=== PATIENT | male | born 1965 | race Caucasian/White ===

== ENCOUNTER 2018-04-14 15:55 | Emergency (ER) | payer OTHER, SELFPAY ==
[2018-04-14 16:03] VITALS: BP 136/84; PULSE 60; RESP 20; TEMP 36.7; O2SAT 99
--- NOTE | 2018-04-14 16:18 | DI.RAD.S_ITS ---
PROCEDURE: XR KNEE RT 3V INDICATIONS: twisting injury, heard a pop TECHNIQUE: 3 views of the knee were acquired. COMPARISON: None. FINDINGS: Bones: No fractures or dislocations. No suspicious bony lesions. Soft tissues: There is a small joint effusion. No suspicious soft tissue calcifications. IMPRESSION: Small joint effusion. No fracture or dislocation. If pain persists, consider advanced imaging with CT or MRI. Dictated by: Rosie Neal M.D. on 04/14/2018 at 17:02 Approved by: Rosie Neal M.D. on 04/14/2018 at 17:03
--- NOTE | 2018-04-14 18:08 | ED.LOWEXIN ---
HPI - Extremity Injury (Lower) <ERIBERTO Cerda - Last Filed: 04/14/18 23:12> General Chief Complaint: Extremity Injury, Lower Stated Complaint: THINKS HE TORE SOMETHING IN HIS RIGHT KNEE Time Seen by Provider: 04/14/18 17:43 Source: patient Mode of arrival: ambulatory Limitations: no limitations History of Present Illness HPI Narrative: Patient had a twisting fall of his right knee today while fishing. He felt a pop and felt like his knee was on stable afterwards. He states he has never hurt that knee before. He fell down an embankment. He denies any other injuries denies neck pain, denies back pain, denies level loss of consciousness. States that he is here for knee pain. Has tried a knee compression sleeve. Has tried ice. He denies any numbness tingling or weakness of his legs. Related Data Home Medications Medication Instructions Recorded Confirmed ibuprofen [Advil Liqui-Gel] 200 mg PO Q4HP PRN #0 01/24/18 acetaminophen 650 mg PO Q4HP PRN #0 01/25/18 Previous Rx's Medication Instructions Recorded hydrocodone-acetaminophen [[place]] 1 tab PO Q4H PRN #40 tab 01/25/18 Allergies Allergy/AdvReac Type Severity Reaction Status Date / Time No Known Allergies Allergy Uncoded 02/20/18 12:54 Review of Systems <ERIBERTO Cerda - Last Filed: 04/14/18 23:12> Review of Systems GENERAL: Denies chills, fatigue, malaise, fever, sweats. HEENT: Denies sinus pain, ear pain, sore throat, difficulty swallowing, dizziness. RESPIRATORY: Denies dyspnea, cough, wheezing, hemoptysis, sputum. CARDIOVASCULAR: Denies chest pain, palpitations, orthopnea, edema, GASTROINTESTINAL: Denies nausea, vomiting, abdominal pain, diarrhea, constipation, melena. : Denies dysuria, frequency, incontinence, hematuria, urinary retention. MUSCULOSKELETAL: See HPI SKIN: See HPI NEUROLOGIC: Denies weakness, headache, numbness, change in speech, confusion, seizures, incoordination. PSYCHIATRIC: No concerning psychosocial issues. 12 point review of systems is negative except for those stated above Exam <ERIBERTO Cerad - Last Filed: 04/14/18 23:12> Narrative Exam Narrative: GENERAL: This is a well-nourished, well-developed patient, lying on stretcher. HEAD: Atraumatic. Normocephalic. No temporal or scalp tenderness. EYES: Pupils equal round and reactive. Extraocular motions intact. No scleral icterus. No injection or drainage. ENT: Nose without bleeding, purulent drainage or septal hematoma. Throat without erythema, tonsillar hypertrophy or exudate. Uvula midline. Airway patent. NECK: Trachea midline. No JVD or lymphadenopathy. Supple, nontender, no meningeal signs. CARDIOVASCULAR: Regular rate and rhythm without murmurs, gallops, or rubs. RESPIRATORY: Clear to auscultation. Breath sounds equal bilaterally. No wheezes, rales, or rhonchi. GASTROINTESTINAL: Abdomen soft, non-tender, nondistended. No hepato-splenomegaly, or palpable masses. No guarding. EXTREMITIES: Right knee has reduced range of motion due to pain. Negative anterior drawer, negative posterior drawer pain on varus and valgus maneuvers. Negative Jannette's test on right knee. BACK: Nontender without deformity or crepitance. No flank tenderness. NEURO: AOx3. SKIN: Slight swelling noted right knee. No ecchymosis, erythema skin is intact right knee. Initial Vital Signs Initial Vital Signs: Vital Signs Temperature 98.1 F 04/14/18 16:03 Pulse Rate 60 04/14/18 16:03 Respiratory Rate 20 04/14/18 16:03 Blood Pressure 136/84 H 04/14/18 16:03 Pulse Oximetry 99 04/14/18 16:03 <Ab Blankenship DO - Last Filed: 04/15/18 01:39> Initial Vital Signs Initial Vital Signs: Vital Signs Temperature 98.1 F 04/14/18 16:03 Pulse Rate 60 04/14/18 16:03 Respiratory Rate 20 04/14/18 16:03 Blood Pressure 136/84 H 04/14/18 16:03 Pulse Oximetry 99 04/14/18 16:03 Procedures <SLOAN Cerda-BLAYNE - Last Filed: 04/14/18 23:12> Orthopedic Splinting/Casting Injury #1: Side: right Lower Extremity Injury Location: knee Lower Extremity Immobilizer: knee immobilizer Other Orthopedic Equipment: crutches Additional Comments: Pulse motor sensory intact before and after knee immobilizer application. Course <ALBINO Cerda - Last Filed: 04/14/18 23:12> Hospital Course: Patient presented with knee pain. An x-ray was taken which showed no acute fracture. He was placed in a knee immobilizer with pulse motor and sensory intact before and after application. Discussed at length follow-up with [facility] as well as primary care. Orders Ordered: ED Orders 04/14/18 16:18 XR knee RT 3V Stat Vital Signs - 8 hr 04/14/18 18:33 Pulse Rate 62 Respiratory Rate 15 Blood Pressure [Right Arm] 127/75 H Pulse Oximetry 100 <Ab Blankenship DO - Last Filed: 04/15/18 01:39> Orders Ordered: ED Orders 04/14/18 16:18 XR knee RT 3V Stat Vital Signs - 8 hr 04/14/18 18:33 Pulse Rate 62 Respiratory Rate 15 Blood Pressure [Right Arm] 127/75 H Pulse Oximetry 100 MDM - Extremity Injury (Lower) <ALBINO Cerda - Last Filed: 04/14/18 23:12> Imaging Data right knee: Radiologist's impression: [place] [address] XRay Report Signed Patient: Stefan Arce MR#: [id number] : 1965 Acct:[id number] Age/Sex: 52 / M Date of Service: 04/14/18 Loc: ED Accession Number: [id number] Procedure: XR knee RT 3V Ordering Provider: Roseline Walker PROCEDURE: XR KNEE RT 3V INDICATIONS: twisting injury, heard a pop TECHNIQUE: 3 views of the knee were acquired. COMPARISON: None. FINDINGS: Bones: No fractures or dislocations. No suspicious bony lesions. Soft tissues: There is a small joint effusion. No suspicious soft tissue calcifications. IMPRESSION: Small joint effusion. No fracture or dislocation. If pain persists, consider advanced imaging with CT or MRI. Dictated by: Rosie Neal M.D. on 04/14/2018 at 17:02 Approved by: Rosie Neal M.D. on 04/14/2018 at 17:03 [facility] Narrative Medical decision making narrative: Patient presents with right knee pain. He has pain on varus and valgus maneuvers making me suspicious for an MCL or LCL etiology. He had a negative x-ray. He was placed in a knee immobilizer and crutches for comfort. Discussed at length [id number] medications as needed for pain, rice, elevation. Patient plans on following up with [facility] and primary care provider. Discussed return precautions upon Service decreased circulation of leg and foot. Patient had no questions or concerns upon discharge. Discharge Plan Departure Patient Disposition: Home, Self-Care Clinical Impression: Acute knee pain Discharge Date/Time: 04/14/18 18:48 Interventions: ED Discharge Assessment Last Done: 04/14/18 18:35 Instructions: How To Perform RICE (Rest, Ice, Compress, Elevate), DI for Knee Pain Activity Restrictions/Additional Instructions: Today we did x-rays of your knee which showed no acute fracture. I am concerned about the ligaments in your knee, so we have placed you in a knee immobilizer. We have also given you crutches to use for the time being. I would like you to follow up with [facility] and I have placed a referral for them for you. I would like you to rest, use ice, and [id number] pain medication as needed and able. Also please use compression and elevation. Prescriptions: No Action ibuprofen [Advil Liqui-Gel] 200 MG capsule 200 mg PO Q4HP PRNQty: 0 RF: 0 acetaminophen 325 MG tablet 650 mg PO Q4HP PRNQty: 0 RF: 0 hydrocodone-acetaminophen [[place]] 5 MG/325 MG tablet 1 tab PO Q4H PRNQty: 40 RF: 0 Referrals: [facility] [Provider Group] Deng Moon MD [Primary Care Provider] -
[2018-04-14 18:33] VITALS: BP 127/75; PULSE 62; RESP 15; O2SAT 100
--- NOTE | 2018-04-14 23:09 | ED_ITS ---
HPI - Extremity Injury (Lower) <ERIBERTO Cerda - Last Filed: 04/14/18 23:12> General Chief Complaint: Extremity Injury, Lower Stated Complaint: THINKS HE TORE SOMETHING IN HIS RIGHT KNEE Time Seen by Provider: 04/14/18 17:43 Source: patient Mode of arrival: ambulatory Limitations: no limitations History of Present Illness HPI Narrative: Patient had a twisting fall of his right knee today while fishing. He felt a pop and felt like his knee was on stable afterwards. He states he has never hurt that knee before. He fell down an embankment. He denies any other injuries denies neck pain, denies back pain, denies level loss of consciousness. States that he is here for knee pain. Has tried a knee compression sleeve. Has tried ice. He denies any numbness tingling or weakness of his legs. Related Data Home Medications Medication Instructions Recorded Confirmed ibuprofen [Advil Liqui-Gel] 200 mg PO Q4HP PRN #0 01/24/18 acetaminophen 650 mg PO Q4HP PRN #0 01/25/18 Previous Rx's Medication Instructions Recorded hydrocodone-acetaminophen [[place]] 1 tab PO Q4H PRN #40 tab 01/25/18 Allergies Allergy/AdvReac Type Severity Reaction Status Date / Time No Known Allergies Allergy Uncoded 02/20/18 12:54 Review of Systems <ERIBERTO Cerda - Last Filed: 04/14/18 23:12> Review of Systems GENERAL: Denies chills, fatigue, malaise, fever, sweats. HEENT: Denies sinus pain, ear pain, sore throat, difficulty swallowing, dizziness. RESPIRATORY: Denies dyspnea, cough, wheezing, hemoptysis, sputum. CARDIOVASCULAR: Denies chest pain, palpitations, orthopnea, edema, GASTROINTESTINAL: Denies nausea, vomiting, abdominal pain, diarrhea, constipation, melena. : Denies dysuria, frequency, incontinence, hematuria, urinary retention. MUSCULOSKELETAL: See HPI SKIN: See HPI NEUROLOGIC: Denies weakness, headache, numbness, change in speech, confusion, seizures, incoordination. PSYCHIATRIC: No concerning psychosocial issues. 12 point review of systems is negative except for those stated above Exam <ERIBERTO Cerda - Last Filed: 04/14/18 23:12> Narrative Exam Narrative: GENERAL: This is a well-nourished, well-developed patient, lying on stretcher. HEAD: Atraumatic. Normocephalic. No temporal or scalp tenderness. EYES: Pupils equal round and reactive. Extraocular motions intact. No scleral icterus. No injection or drainage. ENT: Nose without bleeding, purulent drainage or septal hematoma. Throat without erythema, tonsillar hypertrophy or exudate. Uvula midline. Airway patent. NECK: Trachea midline. No JVD or lymphadenopathy. Supple, nontender, no meningeal signs. CARDIOVASCULAR: Regular rate and rhythm without murmurs, gallops, or rubs. RESPIRATORY: Clear to auscultation. Breath sounds equal bilaterally. No wheezes , rales, or rhonchi. GASTROINTESTINAL: Abdomen soft, non-tender, nondistended. No hepato-splenomegaly , or palpable masses. No guarding. EXTREMITIES: Right knee has reduced range of motion due to pain. Negative anterior drawer, negative posterior drawer pain on varus and valgus maneuvers. Negative Jannette's test on right knee. BACK: Nontender without deformity or crepitance. No flank tenderness. NEURO: AOx3. SKIN: Slight swelling noted right knee. No ecchymosis, erythema skin is intact right knee. Initial Vital Signs Initial Vital Signs: Vital Signs Temperature 98.1 F 04/14/18 16:03 Pulse Rate 60 04/14/18 16:03 Respiratory Rate 20 04/14/18 16:03 Blood Pressure 136/84 H 04/14/18 16:03 Pulse Oximetry 99 04/14/18 16:03 <Ab Blankenship DO - Last Filed: 04/15/18 01:39> Initial Vital Signs Initial Vital Signs: Vital Signs Temperature 98.1 F 04/14/18 16:03 Pulse Rate 60 04/14/18 16:03 Respiratory Rate 20 04/14/18 16:03 Blood Pressure 136/84 H 04/14/18 16:03 Pulse Oximetry 99 04/14/18 16:03 Procedures <SLOAN Cerda-BLAYNE - Last Filed: 04/14/18 23:12> Orthopedic Splinting/Casting Injury #1: Side: right Lower Extremity Injury Location: knee Lower Extremity Immobilizer: knee immobilizer Other Orthopedic Equipment: crutches Additional Comments: Pulse motor sensory intact before and after knee immobilizer application. Course <ALBINO Cerda - Last Filed: 04/14/18 23:12> Hospital Course: Patient presented with knee pain. An x-ray was taken which showed no acute fracture. He was placed in a knee immobilizer with pulse motor and sensory intact before and after application. Discussed at length follow-up with [facility] as well as primary care. Orders Ordered: ED Orders 04/14/18 16:18 XR knee RT 3V Stat Vital Signs - 8 hr 04/14/18 18:33 Pulse Rate 62 Respiratory Rate 15 Blood Pressure [Right Arm] 127/75 H Pulse Oximetry 100 <Ab Blankenship DO - Last Filed: 04/15/18 01:39> Orders Ordered: ED Orders 04/14/18 16:18 XR knee RT 3V Stat Vital Signs - 8 hr 04/14/18 18:33 Pulse Rate 62 Respiratory Rate 15 Blood Pressure [Right Arm] 127/75 H Pulse Oximetry 100 MDM - Extremity Injury (Lower) <ALBINO Cerda - Last Filed: 04/14/18 23:12> Imaging Data right knee: Radiologist's impression: [place] [address] XRay Report Signed Patient: Stefan Arce MR#: [id number] : 1965 Acct:[id number] Age/Sex: 52 / M Date of Service: 04/14/18 Loc: ED Accession Number: [id number] Procedure: XR knee RT 3V Ordering Provider: Roseline Walker PROCEDURE: XR KNEE RT 3V INDICATIONS: twisting injury, heard a pop TECHNIQUE: 3 views of the knee were acquired. COMPARISON: None. FINDINGS: Bones: No fractures or dislocations. No suspicious bony lesions. Soft tissues: There is a small joint effusion. No suspicious soft tissue calcifications. IMPRESSION: Small joint effusion. No fracture or dislocation. If pain persists, consider advanced imaging with CT or MRI. Dictated by: Rosie Neal M.D. on 04/14/2018 at 17:02 Approved by: Rosie Neal M.D. on 04/14/2018 at 17:03 [facility] Narrative Medical decision making narrative: Patient presents with right knee pain. He has pain on varus and valgus maneuvers making me suspicious for an MCL or LCL etiology. He had a negative x-ray. He was placed in a knee immobilizer and crutches for comfort. Discussed at length [id number] medications as needed for pain, rice, elevation. Patient plans on following up with [facility] and primary care provider. Discussed return precautions upon Service decreased circulation of leg and foot. Patient had no questions or concerns upon discharge. Discharge Plan Departure Patient Disposition: Home, Self-Care Clinical Impression: Acute knee pain Discharge Date/Time: 04/14/18 18:48 Interventions: ED Discharge Assessment Last Done: 04/14/18 18:35 Instructions: How To Perform RICE (Rest, Ice, Compress, Elevate), DI for Knee Pain Activity Restrictions/Additional Instructions: Today we did x-rays of your knee which showed no acute fracture. I am concerned about the ligaments in your knee, so we have placed you in a knee immobilizer. We have also given you crutches to use for the time being. I would like you to follow up with [facility] and I have placed a referral for them for you. I would like you to rest, use ice, and over-the- counter pain medication as needed and able. Also please use compression and elevation. Prescriptions: No Action ibuprofen [Advil Liqui-Gel] 200 MG capsule 200 mg PO Q4HP PRNQty: 0 RF: 0 acetaminophen 325 MG tablet 650 mg PO Q4HP PRNQty: 0 RF: 0 hydrocodone-acetaminophen [[place]] 5 MG/325 MG tablet 1 tab PO Q4H PRNQty: 40 RF: 0 Referrals: [facility] [Provider Group] Deng Moon MD [Primary Care Provider] -
== END 2018-04-14 18:48 | disposition home or self-care (01) ==
PROVIDERS: Emergency Provider Nurse Practitioner Family; Family Provider Family Medicine; PCP Family Medicine
DX: M25.561 Pain in right knee (principal)
CPT/HCPCS: 73562; 99283

== ENCOUNTER → 2018-04-18 06:56 | Outpatient (CLI) | payer OTHER, SELFPAY ==
--- NOTE | 2018-04-18 | DI.MRI.S_ITS ---
PROCEDURE: MR KNEE RT WO CON INDICATIONS: RIGHT KNEE PAIN TECHNIQUE: Noncontrast sagittal PD fast spin echo and T2 fast spin echo with fat saturation, sagittal 3-D FLASH with fat saturation; coronal T1 spin echo and PD fast spin echo with fat saturation, and axial PD fast spin echo with fat saturation through the knee. COMPARISON: None. FINDINGS: Image quality: Excellent. Menisci: Poorly defined undersurface tear involving the body and posterior horn, possibly the posterior root of the lateral meniscus is seen. There is also medial meniscal tear with extension to the free margin and undersurface of the body and posterior horn, for example image 18 series 7. Cruciate ligaments: The anterior cruciate ligament is not well visualized in particular the distal segment in keeping with rupture, and there is intrasubstance signal change of the proximal visualized segment. There is also uncovering of the posterior horn of lateral meniscus which is seen in the setting of ACL insufficiency. There are also prominent intraosseous ganglion cyst involving the roof of the intercondylar notch at the base of the tibial eminence which suggest the possibility of background chronic mucoid degeneration. The posterior cruciate ligament appears intact. Medial structures: The medial collateral ligament appears intact. The posterior oblique ligament, semimembranosus tendon insertions, oblique popliteal ligament, and meniscocapsular junction appear intact. Visualized portions of the pes anserinus tendons appear normal. No abnormal bursal fluid. Lateral structures: The lateral collateral ligament, long and short heads of the biceps femoris tendon appear intact. The popliteus tendon appears normal; the popliteofibular ligament appears intact. The posterosuperior and anteroinferior popliteomeniscal fascicles appear intact. The arcuate and fabellofibular ligaments appear intact, on either side of the lateral inferior geniculate artery. Iliotibial band appears normal. Anterior structures: The quadriceps and patellar tendons appear intact. Mild low-grade distal patellar tendinopathy. There is prepatellar and superficial infrapatellar subcutaneous edema. Deep infrapatellar bursal fluid is also present Patellar alignment is normal. No femoral trochlear dysplasia or ventral trochlear prominence. No edema in the infrapatellar fat pad. Bones and cartilage: No bone marrow contusions or fractures. Within the medial compartment, femoral and tibial articular cartilage appears grossly preserved. Within the lateral compartment, there is small diffuse partial thickness loss of the femoral cartilage without focal defect. Within the patellofemoral compartment, near full-thickness loss of cartilage overlying the median patellar ridge with underlying subchondral cystic change and edema. The femoral trochlear cartilage appears intact. Joint space: Moderate joint effusion is seen. There is a Redman's cyst which measures approximately 4.4 cm in the cephalocaudad dimension. IMPRESSION: Lateral meniscal tear involving the body, posterior horn and possibly the posterior root. No definite extrusion is seen. Medial meniscal tear involving the body and posterior horn, which extends to the free margin and undersurface. Rupture of the anterior cruciate ligament. Please correlate to exam findings. 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 Redman's cyst. Degenerative joint disease, most pronounced within the lateral and patellofemoral compartments. Prepatellar and superficial infrapatellar subcutaneous edema. Low-grade age indeterminate distal patellar tendinopathy Dictated by: Solomon Cedeno M.D. on 04/18/2018 at 9:44 Approved by: Solomon Cedeno M.D. on 04/18/2018 at 9:56
== END ==
PROVIDERS: Family Provider Family Medicine; PCP Family Medicine; Visit Provider Orthopaedic Surgery
DX: M25.561 Pain in right knee (principal); S83.281A Other tear of lateral meniscus, current injury, right knee, initial encounter; S83.241A Other tear of medial meniscus, current injury, right knee, initial encounter; S83.511A Sprain of anterior cruciate ligament of right knee, initial encounter; M25.461 Effusion, right knee; M71.21 Synovial cyst of popliteal space [Baker], right knee
CPT/HCPCS: 73721

== ENCOUNTER → 2018-10-14 09:50 | Outpatient (CLI) | payer OTHER, SELFPAY ==
--- NOTE | 2018-10-14 | DI.US.S_ITS ---
PROCEDURE: US PERIPH VENOUS LOW EXTREM RT INDICATIONS: Recent ACL repair. TECHNIQUE: Real-time imaging, as well as color and pulse Doppler interrogation, were performed of the lower extremity deep veins from the inguinal ligament to the popliteal fossa. COMPARISON: None. FINDINGS: The deep veins are normally compressible, and free of intraluminal thrombus. Color and pulse Doppler demonstrate normal phasic intraluminal flow. There is normal augmentation response to distal compression maneuver. IMPRESSION: No evidence of right lower extremity deep vein thrombosis. Dictated by: Jeffrey Santoyo M.D. on 10/14/2018 at 9:30 Approved by: Jeffrey Santoyo M.D. on 10/14/2018 at 9:32
== END ==
PROVIDERS: Family Provider Family Medicine; PCP Family Medicine; Visit Provider Orthopaedic Surgery
DX: S83.511S Sprain of anterior cruciate ligament of right knee, sequela (principal); Z98.890 Other specified postprocedural states
CPT/HCPCS: 93971

== ENCOUNTER → 2021-01-26 08:07 | Outpatient (CLI) | payer OTHER, SELFPAY ==
[2021-01-26] MEDS: COVID-19 VACC #1, MRNA(MOD) 100 MCG/0.5 ML VIAL IM (08:16)
== END ==
PROVIDERS: Visit Provider Internal Medicine
DX: Z23 Encounter for immunization (principal)
CPT/HCPCS: 0011A; 91301

== ENCOUNTER → 2021-02-23 08:01 | Outpatient (CLI) | payer OTHER, SELFPAY ==
[2021-02-23] MEDS: COVID-19 VACC #2, MRNA(MOD) 100 MCG/0.5 ML VIAL IM (08:12)
== END ==
PROVIDERS: Visit Provider Internal Medicine
DX: Z23 Encounter for immunization (principal)
CPT/HCPCS: 0012A; 91301

== ENCOUNTER → 2025-06-05 14:34 | Outpatient (CLI) | payer OTHER, SELFPAY ==
--- NOTE | 2025-06-05 14:38 | DI.RAD.S_ITS ---
PROCEDURE: XR KNEE LT 2V INDICATIONS: CHRONIC LT KNEE PAIN TECHNIQUE: 2 views of the knee were acquired. COMPARISON: [facility] x-ray 09/11/2022, prior report is not available. FINDINGS: New mild left knee joint effusion. Mild degenerative changes of the left knee with joint space narrowing and osteophytes in the medial, lateral and patellofemoral compartment Kellgren Shiraz grade 2. No radiographic evidence of displaced fracture, dislocation or high attenuation soft tissue foreign body. IMPRESSION: New mild knee joint effusion, degenerative changes unchanged. Dictated by: Song Ramirez M.D. on 06/06/2025 at 16:32 Approved by: Song Ramirez M.D. on 06/06/2025 at 16:34
--- NOTE | 2025-06-05 14:39 | DI.RAD.S_ITS ---
PROCEDURE: XR KNEE RT 2V INDICATIONS: CHRONIC RT KNEE PAIN TECHNIQUE: 2 views of the knee were acquired. COMPARISON: [facility], , XR KNEE RT 3V, 04/14/2018, 16:17. FINDINGS: Postoperative changes status post right ACL graft reconstruction with lateral femoral anchor button. Degenerative changes of the right knee with joint space narrowing, osteophytes in the medial, lateral and patellofemoral compartments, Kellgren Shiraz grade 2-3 progressed. Ismr-qj-cnpqwmms right knee joint effusion mildly increased. No radiographic evidence of displaced fracture, dislocation or high attenuation foreign body. IMPRESSION: Degenerative changes mildly progressed. Epes-xp-[id number] right knee joint effusion increased. If symptoms persist or worsen, or there is high clinical suspicion of right knee abnormality, MRI could be performed. Dictated by: Song Ramirez M.D. on 06/06/2025 at 16:34 Approved by: Song Ramirez M.D. on 06/06/2025 at 16:37
== END ==
PROVIDERS: PCP Family Medicine; Referring Provider Family Medicine; Visit Provider Family Medicine
DX: M25.561 Pain in right knee (principal); M25.562 Pain in left knee; G89.29 Other chronic pain; M25.461 Effusion, right knee; M25.462 Effusion, left knee
CPT/HCPCS: 73560